=== PATIENT | male | born 2005 | race Caucasian/White ===

== ENCOUNTER 2023-01-15 20:08 | Outpatient (CLI) | payer OTHER, SELFPAY | END 2023-01-15 20:09 | disposition home or self-care (01) | LOC: AMB 01-19 12:27 | PROVIDERS: PCP Family Medicine; Visit Provider Family Medicine | DX: S69.92XA Unspecified injury of left wrist, hand and finger(s), initial encounter (principal); S09.93XA Unspecified injury of face, initial encounter; W05.1XXA Fall from non-moving nonmotorized scooter, initial encounter; Y92.9 Unspecified place or not applicable | CPT/HCPCS: A0425; A0433 ==